=== PATIENT | female | born 1985 | race Caucasian/White ===

== ENCOUNTER 2021-08-18 12:52 | Observation (INO) | payer OTHER ==
[~2021-08-18] VITALS: Ht 162.6 cm; Wt 100.7 kg
[2021-08-18] MEDS ORDERED: PNV91TAB8 PO (13:17)
[2021-08-18 13:33] VITALS: BP 136/74
== END 2021-08-18 14:25 | disposition home or self-care (01) ==
LOC: MLD 12:52
PROVIDERS: ADMIT Obstetrics & Gynecology; ATTEND Obstetrics & Gynecology
DX: O36.8130 Decreased fetal movements, third trimester, not applicable or unspecified (principal); Z3A.40 40 weeks gestation of pregnancy
CPT/HCPCS: 76815; G0378; G0379; Q0092; 59025

== ENCOUNTER 2023-11-14 12:44 | Observation (INO) | payer OTHER ==
[~2023-11-14] VITALS: Ht 162.6 cm; Wt 105.2 kg
[~2023-11-14 12:44] MED LIST: PNV91TAB8 PO
[2023-11-14] MEDS ORDERED: ASPI-1822 PO (13:46)
== END 2023-11-14 14:39 | disposition home or self-care (01) ==
LOC: MLD 12:44
PROVIDERS: ADMIT Obstetrics & Gynecology; ATTEND Obstetrics & Gynecology
DX: O26.893 Other specified pregnancy related conditions, third trimester (principal); R10.9 Unspecified abdominal pain; O36.8330 Maternal care for abnormalities of the fetal heart rate or rhythm, third trimester, not applicable or unspecified; Z3A.39 39 weeks gestation of pregnancy; Z79.82 Long term (current) use of aspirin; Z85.828 Personal history of other malignant neoplasm of skin
CPT/HCPCS: 59025; 81000; G0378

== ENCOUNTER 2023-11-20 03:30 | Observation (INO) | payer OTHER ==
[~2023-11-20] VITALS: Ht 162.6 cm; Wt 105.7 kg
[~2023-11-20 03:30] MED LIST changes: +ASPI-1822 PO
[2023-11-20 03:40] VITALS: BP 129/66; PULSE 85; RESP 18; TEMP 98.5
== END 2023-11-20 07:20 | disposition home or self-care (01) ==
LOC: MLD 03:30
PROVIDERS: ADMIT Obstetrics & Gynecology; ATTEND Obstetrics & Gynecology
DX: O36.8130 Decreased fetal movements, third trimester, not applicable or unspecified (principal); Z20.822 Contact with and (suspected) exposure to COVID-19; Z3A.40 40 weeks gestation of pregnancy
CPT/HCPCS: 76805; 76819; 87426; G0378

== ENCOUNTER 2023-11-30 14:53 | Observation (INO) | payer OTHER ==
[~2023-11-30] VITALS: Ht 162.6 cm; Wt 104.3 kg
== END 2023-11-30 15:58 | disposition home or self-care (01) ==
LOC: MLD 14:53 → MFCC 15:36
PROVIDERS: ADMIT Obstetrics & Gynecology; ATTEND Obstetrics & Gynecology
DX: O26.893 Other specified pregnancy related conditions, third trimester (principal); R10.9 Unspecified abdominal pain; Z3A.41 41 weeks gestation of pregnancy
CPT/HCPCS: G0378